=== PATIENT | male | born 1995 | race African-American/Black ===

== ENCOUNTER → 2021-11-04 07:36 | Outpatient (CLI) | payer OTHER, SELFPAY ==
--- NOTE | 2021-11-04 | DI.MRI.S_ITS ---
PROCEDURE: MR CERVICAL SPINE WO CON INDICATIONS: ABNORMAL REFLEX TECHNIQUE: Noncontrast sagittal T1 spin echo and T2 fast spin echo, sagittal STIR, foraminal oblique sagittal T2 fast spin echo, and axial gradient echo or T2 fast spin echo through the cervical spine. COMPARISON: None. FINDINGS: Image quality: This examination is limited by involuntary motion artifact. Alignment and Curvature: There is normal bony alignment. Bone Marrow: Marrow demonstrates normal overall signal. Spinal Cord: Visualized spinal cord has normal size and signal. No cerebellar tonsillar herniation. Paraspinous Soft Tissues: No paravertebral masses. Prevertebral soft tissues are normal in thickness. C2-C3: The disc height and disk signal are well-preserved. Mild generalized disc bulge is seen. There is moderate bilateral neural foraminal narrowing seen, left worse than right. No significant central canal narrowing is seen. C3-C4: The disc height and disc signal are relatively well preserved. Mild to moderate disc osteophyte complex is seen. Mild to moderate facet hypertrophy is seen. There is moderate to severe bilateral neural foraminal narrowing seen. Mild central canal narrowing is seen. C4-C5: The disc height and disc signal are relatively well preserved. A mild degree of generalized disc osteophyte complex is seen. Moderate facet joint hypertrophy is seen. There is moderate to severe right-sided and moderate left-sided neural foraminal narrowing. Minimal central canal narrowing is seen. C5-C6: The disc height and disk signal are well-preserved. A mild degree of generalized disc osteophyte complex is seen. Moderate facet joint hypertrophy is seen. There is moderate to severe right-sided and moderate left-sided neural foraminal narrowing. No significant central canal narrowing is seen. C6-C7: The disc height and disk signal are well-preserved. A mild degree of generalized disc osteophyte complex is seen. Mild facet joint hypertrophy is seen. There is moderate right-sided and [id number] left-sided neural foraminal narrowing. No central canal narrowing is seen. C7-T1: The disc height and disk signal are well-preserved. A mild degree of generalized disc osteophyte complex is seen. There is moderate right-sided and [id number] left-sided neural foraminal narrowing. No central canal narrowing is seen. IMPRESSION: Motion limited study demonstrating multiple levels of premature neural foraminal narrowing and central canal narrowing. Dictated by: Slade Umaña M.D. on 11/04/2021 at 10:04 Approved by: Slade Umaña M.D. on 11/04/2021 at 10:08
== END ==
PROVIDERS: Referring Provider Internal Medicine; Visit Provider Internal Medicine
DX: M48.02 Spinal stenosis, cervical region (principal); R29.2 Abnormal reflex
CPT/HCPCS: 72141